=== PATIENT | male | born 1995 | race Caucasian/White ===

== ENCOUNTER 2019-06-10 20:49 | Emergency (ER) | payer BC, OTHER ==
--- NOTE | 2019-06-10 21:01 | PDOC ---
Rapid Medical Evaluation Time Seen by Provider: 06/10/19 20:59 Medical Evaluation: 06/10/19 20:59 I have performed a brief in-person evaluation of this patient. The patient presents with a chief complaint of: laceration to chin. Td- UTD Pertinent physical exam findings: 0.5 elliptical laceration to underside of chin I have ordered the following: nothing The patient will proceed to the ED for further evaluation. Discharge Disposition - Diagnosis Laceration - Referrals - Patient Instructions - Post Discharge Activity
[2019-06-10 21:03] VITALS: BP 134/76; PULSE 68; TEMP 98; BMI 25.0
--- NOTE | 2019-06-10 22:49 | PDOC ---
History of Present Illness - General Chief Complaint: Laceration Stated Complaint: SENT BY DOCTOR Time Seen by Provider: 06/10/19 20:59 - History of Present Illness Initial Comments: 06/10/19 22:46 24-year-old male without comorbidities presents for evaluation of a laceration on his chin which occurred while getting head butted during a basketball game. No loss of consciousness post injury nausea vomiting or visual changes. He is current on tetanus. Past History - Past Medical History Asthma: Yes (from allergies) COPD: No - Immunization History Immunization Up to Date: Yes - Suicide/Smoking/Psychosocial Hx Smoking History: Never smoked Review of Systems - Review of Systems Constitutional: Yes: See HPI *Physical Exam - Vital Signs Last Vital Signs Temp Pulse Resp BP Pulse Ox 98 F 68 18 134/76 99 06/10/19 21:00 06/10/19 21:00 06/10/19 21:00 06/10/19 21:00 06/10/19 21:00 - Physical Exam Comments: 06/10/19 22:46 HEAD: NC; there is a 1 cm laceration on the undersurface of the chin exposing subcutaneous fat. EYES: Conjuntiva clear Ears: Canals and TM's normal NOSE: No d/c THROAT: Moist mucous membrances, oral pharanx clear, uvula midline NECK: Supple without adenopathy CARDIAC: S1 S2 LUNGS: CTA Full and Equal breath sounds ABDOMEN: Soft NT ND MS: Full ROM in all joints without edema NEUROLOGIC: No gross sensory or motor deficits, NVID SKIN: Normal color and temperature no lesions or rashes Medical Decision Making - Medical Decision Making 06/10/19 22:47 The wound was anesthetized with 6 mL of 1% lidocaine aseptically prepped prior to introduction of lidocaine. Copiously irrigated explored to the base in a bloodless field without identification of foreign body. 3 simple interrupted 5- 0 Prolene sutures were used to approximate the wound edges. A dry sterile dressing was placed. This was tolerated well. *DC/Admit/Observation/Transfer Diagnosis at time of Disposition: Laceration - Discharge Dispostion Disposition: HOME Condition at time of disposition: Stable Decision to Admit order: No - Referrals - Patient Instructions Printed Discharge Instructions: DI for Laceration Repair Additional Instructions: Return to the emergency room in 7 days for suture removal. you m ay also follow- up with your primary care physician in 7 days for suture removal. Keep the dressing on for the next 48 hours. Keep the area clean and dry. After 48 hours may remove the dressing and wash the area with soap and water gently do not scrub it and leave the area open to air. Do not apply any ointments. Return to the emergency room sooner if problems develop such as redness pain drainage or swelling in the area of the wound. - Post Discharge Activity
== END 2019-06-10 22:52 | disposition home or self-care (01) ==
LOC: JERFT 20:49
PROC: 0HQ1XZZ Repair Face Skin, External Approach (ICD-10-PCS; principal; 2019-06-10)
DX: S01.81XA Laceration without foreign body of other part of head, initial encounter (principal); W21.89XA Striking against or struck by other sports equipment, initial encounter; Y93.67 Activity, basketball; Y92.310 Basketball court as the place of occurrence of the external cause
CPT/HCPCS: 99282-25